=== PATIENT | female | born 1975 | race Caucasian/White ===

== ENCOUNTER 2025-01-07 07:51 | Outpatient (CLI) | payer BC, OTHER | END 2025-01-07 07:52 | disposition home or self-care (01) | LOC: CSHCT 07:51 | PROVIDERS: ATTEND Physician Assistant Medical | DX: R10.13 Epigastric pain (principal); K59.09 Other constipation; K21.9 Gastro-esophageal reflux disease without esophagitis; R11.0 Nausea; N83.9 Noninflammatory disorder of ovary, fallopian tube and broad ligament, unspecified; M41.9 Scoliosis, unspecified; M47.819 Spondylosis without myelopathy or radiculopathy, site unspecified | CPT/HCPCS: 74177 ==